=== PATIENT | female | born 1975 ===

== ENCOUNTER 2017-10-18 07:46 | Outpatient (CLI) | payer OTHER | END 2017-10-18 07:47 | disposition home or self-care (01) | LOC: BICMRI 07:46 | PROVIDERS: ATTEND Family Medicine | DX: M54.5 Low back pain (principal) | CPT/HCPCS: 72148 ==

== ENCOUNTER 2018-01-25 11:41 | Outpatient (CLI) | payer OTHER ==
--- NOTE | 2018-01-25 11:48 | ULT ---
PELVIC SONOGRAM TRANSABDOMINAL AND TRANSVAGINAL IMAGING WITH DUPLEX EVALUATION: HISTORY: Pelvic pain. Fibroids. FINDINGS: Urinary bladder is decompressed. Uterus has a heterogeneous echotexture ad is retroverted. 9.5 cm. Endometrium is 0.9 cm. No free fluid. No focal fibroids. Nabothian cysts, including complex cysts , arise from the cervix. Right ovary is not visualized. Left ovary is 4.0 cm with good color and spectral Doppler flow. IMPRESSION: Retroverted uterus. No significant abnormalities are demonstrated. POS: FELY
== END 2018-01-25 11:42 | disposition home or self-care (01) ==
LOC: BICULT 11:41
PROVIDERS: ATTEND Family Medicine
DX: D64.9 Anemia, unspecified (principal); N92.0 Excessive and frequent menstruation with regular cycle; N85.4 Malposition of uterus
CPT/HCPCS: 76856